=== PATIENT | female | born 1970 | race Caucasian/White ===

== ENCOUNTER 2020-05-28 20:00 | Observation (INO) | payer BC, SELFPAY ==
[2020-05-28 20:36] VITALS: BP 129/77; PULSE 98; RESP 19; TEMP 36.6; O2SAT 92; BMI 66.5
--- NOTE | 2020-05-28 21:01 | W.ED.GENADLT ---
HPI - General Adult General: Chief complaint: General Medical Stated complaint: some sort of rash on legs Time Seen by Provider: 05/28/20 20:52 History of Present Illness: HPI narrative: This patient is a 49-year-old female who presents today with pain and swelling in both of her lower legs. She said she started having a rash there in December and its just progressed to the point where she is having severe pain and weeping constantly. Both legs are red and painful. She says she has been keeping them clean at home with baby wipes and then applying tea tree oil and petroleum jelly. She does not have a regular doctor. She has not seen a doctor for these rash complaints. She is never been diagnosed with diabetes but says it runs in her family. She has morbid obesity. Onset (ago): month(s) (5) Location: lower extremity Severity: severe Severity scale (1-10): 10 Quality: burning Pain Consistency: constant Relieving factors: none Exacerbating factors: none Associated symptoms: Reports rash; Deny chest pain, dyspnea, fevers/chills, headache(s), malaise or nausea Review of Systems General: Reports: 10 or more systems reviewed and unremarkable except in HPI and below Const: Denies: malaise Eyes: Denies: change in vision ENMT: Denies: odynophagia Card: Reports: swelling of feet/ankles; Denies: chest pain Resp: Denies: dyspnea, productive cough or non-productive cough GI: Denies: nausea : Denies: flank pain or difficulty voiding Musc: Denies: neck pain or back pain Skin/Breast: Reports: rash, erythema, sores and non-healing lesions Neuro: Denies: headache(s), numbness in extremities or weakness in extremities Jeff/Lymph: Denies: easy bruising or easy bleeding PFSH ED PFSH: Medical History (Updated 05/29/20 @ 00:20 by Reed Alarcon MD) Morbid obesity Surgical History (Updated 05/29/20 @ 00:08 by Reed Alarcon MD) No pertinent past surgical history Family History (Updated 05/29/20 @ 00:08 by Reed Alarcon MD) Other CAD (coronary artery disease) Diabetes Social History (Updated 05/29/20 @ 00:08 by Reed Alarcon MD) Smoking and tobacco status: never smoked Alcohol intake: current Alcohol intake frequency: few times a month Substance/Drug Use: never Female Reproductive History: Date of last menstrual period: 05/26/20 Physical Exam Const: COMMON NORMALS: patient oriented x3, no limitations and alert GENERAL APPEARANCE: cooperative and in distress NUTRITIONAL APPEARANCE: obese morbidly obese HENMT: HEAD & SCALP: normal to inspection FACE & SINUS: normal facial exam Eye: GENERAL EYE: appearance normal, both eyes and all related structures Neck/C-Spine: COMMON NORMALS: supple, no meningeal signs and no JVD Chest: COMMONS NORMALS: normal inspection of the chest Resp: COMMON NORMALS: normal respiratory effort, No use of accessory muscles and clear to auscultation bilaterally AUSCULTATION: clear to auscultation bilaterally Cardio: COMMON NORMALS: no JVD, regular rate, regular rhythm and No murmurs present (Cardio) RATE: regular rate RHYTHM: regular rhythm GI: COMMON NORMALS: Normal to inspection, nondistended, normoactive bowel sounds present, Soft to palpation and non-tender INSPECTION: Yes normal to inspection AUSCULTATION: Yes normoactive bowel sounds PALPATION: Yes Soft to palpation Back/Pelvis: COMMON NORMALS: thoracic and lumbar spine normal to inspection Extremity: OTHER: Both lower extremities, from the knee down, are red, swollen, weeping and oozing purulent fluid. The feet are also red with swelling. Neuro: COMMON NORMALS: patient oriented x3, moves all extremities, no focal motor deficits and no sensory deficits noted SENSORIUM/ORIENTATION: Yes alert MENINGEAL SIGNS: Yes no meningeal signs Psych: COMMON NORMALS: mental status grossly normal, cooperative and normal affect Skin: COMMON NORMALS: no rashes or lesions noted and turgor normal GENERAL SKIN EXAM: no rashes or lesions noted and turgor normal Course ED course: This patient was having severe pain related to the infections in her leg. I considered the diagnosis of necrotizing fasciitis but she said she has been having this level of pain for several weeks. That seems unlikely that that could possibly be related to necrotizing fasciitis. On exam there is no crepitus or subcutaneous emphysema noted. Her labs show a white count which is slightly elevated but not tremendously high at 11. Lactate is still pending. Her inflammatory markers are quite high including a procalcitonin of 89. I have covered her with Zosyn and vancomycin. She will be admitted to the hospital. Vital Signs: Vital signs: Vital Signs Temperature 98.3 F 05/29/20 07:37 Pulse Rate 88 05/29/20 07:37 Respiratory Rate 18 05/29/20 08:41 Blood Pressure 111/68 05/29/20 07:37 Pulse Oximetry 99 05/29/20 07:37 MDM - General Adult Lab Data: Labs: Lab Results 05/28/20 05/28/20 05/28/20 Range/Units 02:17 02:17 21:24 WBC 10.1 H (4.0-10.0) 10^3/ uL RBC 4.40 (4.1-5.3) 10^6/u L Hgb 11.9 (11.5-15.3) g/dL Hct 37.3 (37.0-47.0) % MCV 84.8 (81-99) fL MCH 27.0 L (28.0-34.0) pg MCHC 31.9 (30.0-36.0) g/dL RDW 15.6 H (12.1-15.1) % Plt Count 276 (130-400) 10^3/c mm MPV 10.1 (7.4-10.4) fL Neut % (Auto) 74.9 % Lymph % (Auto) 16.0 % [place] % (Auto) 6.1 % Eos % (Auto) 1.9 % Baso % (Auto) 0.6 % Neut # (Auto) 7.56 (1.8-7.7) 10^3/u L Lymph # (Auto) 1.6 (0.8-4.8) 10^3/u L [place] # (Auto) 0.6 (0.2-0.9) 10^3/u L Eos # (Auto) 0.2 (0.0-0.8) 10^3/u L Baso # (Auto) 0.1 (0.0-0.1) 10^3/u L Nucleated RBC % (a uto) 0 % Nucleated RBCs # 0.0 /100WBC ESR (0-15) mm/hr Sodium (136-145) mmol/L Potassium (3.5-5.1) mmol/L Chloride (98-107) mmol/L Carbon Dioxide (22-29) mmol/L Anion Gap (5-19) BUN (6-20) mg/dL Creatinine (0.5-0.9) mg/dL GFR Calculation (90-130) mL/min Glucose (65-115) mg/dL Estimat Average Gl ucose 120 Hemoglobin A1c 5.8 (4.0-6.0) % Calculated Osmolal ity (285-295) mOsm/k g Lactic Acid (0.5-2.2) mmol/L Calcium (8.5-10.5) mg/dL Total Bilirubin (0.15-1.2) mg/dL AST (0-32) U/L ALT (0-33) U/L Alkaline Phosphata se (35-105) IU/L C-Reactive Protein (0.0-4.9) mg/L NT-Pro-B Natriuret Pep 87 (0-125) pg/mL Total Protein (6.6-8.7) g/dL Albumin (3.5-5.2) g/dL Globulin (1.3-4.6) g/dL Procalcitonin (0-0.5) ng/mL TSH 8.55 H (0.27-4.20) uIU/ mL 05/28/20 05/28/20 05/28/20 Range/Units 21:24 21:24 22:44 WBC (4.0-10.0) 10^3/ uL RBC (4.1-5.3) 10^6/u L Hgb (11.5-15.3) g/dL Hct (37.0-47.0) % MCV (81-99) fL MCH (28.0-34.0) pg MCHC (30.0-36.0) g/dL RDW (12.1-15.1) % Plt Count (130-400) 10^3/c mm MPV (7.4-10.4) fL Neut % (Auto) % Lymph % (Auto) % [place] % (Auto) % Eos % (Auto) % Baso % (Auto) % Neut # (Auto) (1.8-7.7) 10^3/u L Lymph # (Auto) (0.8-4.8) 10^3/u L [place] # (Auto) (0.2-0.9) 10^3/u L Eos # (Auto) (0.0-0.8) 10^3/u L Baso # (Auto) (0.0-0.1) 10^3/u L Nucleated RBC % (a uto) % Nucleated RBCs # /100WBC ESR 81 H (0-15) mm/hr Sodium 140 (136-145) mmol/L Potassium 3.1 L (3.5-5.1) mmol/L Chloride 105 (98-107) mmol/L Carbon Dioxide 23 (22-29) mmol/L Anion Gap 15.1 (5-19) BUN 19 (6-20) mg/dL Creatinine 1.0 H (0.5-0.9) mg/dL GFR Calculation 58.7 L (90-130) mL/min Glucose 137 H (65-115) mg/dL Estimat Average Gl ucose Hemoglobin A1c (4.0-6.0) % Calculated Osmolal ity 294 (285-295) mOsm/k g Lactic Acid 1.0 (0.5-2.2) mmol/L Calcium 8.6 (8.5-10.5) mg/dL Total Bilirubin 0.4 (0.15-1.2) mg/dL AST 118 H (0-32) U/L ALT 83 H (0-33) U/L Alkaline Phosphata se 94 (35-105) IU/L C-Reactive Protein 104.3 H (0.0-4.9) mg/L NT-Pro-B Natriuret Pep (0-125) pg/mL Total Protein 7.4 (6.6-8.7) g/dL Albumin 3.4 L (3.5-5.2) g/dL Globulin 4.0 (1.3-4.6) g/dL Procalcitonin 89.79 H (0-0.5) ng/mL TSH (0.27-4.20) uIU/ mL Discharge Plan Discharge Patient Disposition: Admitted As Inpatient Admit Provider: Reed Alarcon Clinical Impression: Cellulitis and abscess of right leg, Cellulitis and abscess of left leg, Morbid obesity Condition: Stable Referrals: Myranda Quiroz MD [Primary Care Provider] - Discharge Date/Time: 05/29/20 01:00 Coding Level of Care Code 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
[2020-05-28 21:16] VITALS: BP 138/82; PULSE 100; RESP 24; O2SAT 98
[2020-05-28 21:31] VITALS: RESP 20
[2020-05-28] MEDS: ondansetron 2 mg/ML SDV 2 mL 4 MG IVP (21:31)
[2020-05-28] MEDS: HYDROmorphone 1 mg/mL INJ 1 mL 0.5 MG IVP (21:31)
[2020-05-28 21:37] LABS: Basophils # 0.1 10^3/uL (0.0-0.1); Basophils % 0.6 %; Eosinophils # 0.2 10^3/uL (0.0-0.8); Eosinophils % 1.9 %; Hematocrit 37.3 % (37.0-47.0); Hemoglobin 11.9 g/dL (11.5-15.3); Lymphocytes # 1.6 10^3/uL (0.8-4.8); Mean Corpuscular HGB Conc 31.9 g/dL (30.0-36.0); Mean Corpuscular Volume 84.8 fL (81-99); Mean Platelet Volume 10.1 fL (7.4-10.4); Monocytes # 0.6 10^3/uL (0.2-0.9); Monocytes % 6.1 %; Neutrophils # 7.56 10^3/uL (1.8-7.7); Neutrophils % 74.9 %; Nucleated Red Blood Cells % 0 %; Platelet Count 276 10^3/cmm (130-400); Red Cell Distribution Width 15.6 % (12.1-15.1); White Blood Count 10.1 10^3/uL (4.0-10.0)
[2020-05-28 22:00] VITALS: BP 132/74; RESP 20; O2SAT 97
[2020-05-28 22:16] LABS: Procalcitonin 89.79 ng/mL (0-0.5)
[2020-05-28 22:27] LABS: Alanine Aminotransferase 83 U/L (0-33); Albumin Level 3.4 g/dL (3.5-5.2); Alkaline Phosphatase 94 IU/L (35-105); Blood Urea Nitrogen 19 mg/dL (6-20); C Reactive Protein 104.3 mg/L (0.0-4.9); Calcium 8.6 mg/dL (8.5-10.5); Carbon Dioxide 23 mmol/L (22-29); Chloride 105 mmol/L (98-107); Glomerular Filtration Rate 58.7 mL/min (90-130); Glucose 137 mg/dL (65-115); Osmolality Calculated 294 mOsm/kg (285-295); Sodium 140 mmol/L (136-145); Total Bilirubin 0.4 mg/dL (0.15-1.2); Total Protein 7.4 g/dL (6.6-8.7)
[2020-05-28 22:29] LABS: Anion Gap 15.1 (5-19); Aspartate Amino Transferase 118 U/L (0-32); Potassium 3.1 mmol/L (3.5-5.1)
[2020-05-28 22:37] LABS: Erythrocyte Sedimentation Rate 81 mm/hr (0-15)
[2020-05-28 22:40] VITALS: RESP 20
[2020-05-28] MEDS: HYDROmorphone 1 mg/mL INJ 1 mL IVP (22:40)
[2020-05-28] MEDS: piperacillin-tazobactam 4.5 GM in sodium chloride 0.9% (plus) 50 ML IV (22:41)
[2020-05-28 23:00] VITALS: BP 128/66; PULSE 74; RESP 18; O2SAT 97
--- NOTE | 2020-05-28 23:59 | CTR_ITS ---
PROCEDURE INFORMATION: Exam: CT Left Lower Extremity Without Contrast; Lower Leg Exam date and time: 05/28/2020 12:01 AM Age: 49 years old Clinical indication: Lower leg; Left; Patient HX: C/O ble cellulitis w weeping and pain TECHNIQUE: Imaging protocol: CT of the Left lower extremity without contrast was performed. Exam focused on the lower leg. Radiation optimization: All CT scans at this facility use at least one of these dose optimization techniques: automated exposure control; mA and/or kV adjustment per patient size (includes targeted exams where dose is matched to clinical indication); or iterative reconstruction. COMPARISON: No relevant prior studies available. RADIATION DOSE METRICS: Total DLP (mGy-cm): 1465.4 FINDINGS: Bones/joints: Severe tricompartmental osteoarthritis of the knee. Soft tissues: Diffuse subcutaneous edema throughout the lower extremity without focal fluid collection suggestive of cellulitis, negative for abscess or acute bony abnormality. CT/CT lower leg LT wo con* [id number] IMPRESSION: 1. Diffuse subcutaneous edema throughout the lower extremity without focal fluid collection suggestive of cellulitis, negative for abscess or acute bony abnormality. 2. Severe tricompartmental osteoarthritis of the knee. Radiation Dose CTDIVOL = (mGy): DLP = 1465.4 (mGy-cm)
--- NOTE | 2020-05-28 23:59 | CTR_ITS ---
PROCEDURE INFORMATION: Exam: CT Right Lower Extremity Without Contrast; Lower Leg Exam date and time: 05/28/2020 12:01 AM Age: 49 years old Clinical indication: Lower leg; Right; Patient HX: C/O ble cellulitis w weeping and pain TECHNIQUE: Imaging protocol: CT of the Right lower extremity without contrast was performed. Exam focused on the lower leg. Radiation optimization: All CT scans at this facility use at least one of these dose optimization techniques: automated exposure control; mA and/or kV adjustment per patient size (includes targeted exams where dose is matched to clinical indication); or iterative reconstruction. COMPARISON: No relevant prior studies available. RADIATION DOSE METRICS: Total DLP (mGy-cm): 1184.68 FINDINGS: Bones/joints: Severe tricompartmental osteoarthritis of the knee. Soft tissues: Diffuse subcutaneous edema throughout the lower extremity without focal fluid collection or acute bony abnormality likely reflects a cellulitis. CT/CT lower leg RT wo con* [id number] IMPRESSION: 1. Diffuse subcutaneous edema throughout the lower extremity without focal fluid collection or acute bony abnormality likely reflects a cellulitis. 2. Severe tricompartmental osteoarthritis of the knee. Radiation Dose CTDIVOL = (mGy): DLP = 1184.68 (mGy-cm)
[2020-05-29] VITALS (11 sets, daily range): BP systolic 103–134; BP diastolic 60–77; PULSE 67–101; RESP 14–22; TEMP 36.5–36.8; O2SAT 94–100
--- NOTE | 2020-05-29 00:05 | PM.HP ---
Providers/Chief Complaint Admitting Physician: Reed Alarcon MD Primary Care Provider: Myranda Quiroz MD Chief Complaint: some sort of rash on legs History of Present Illness Mag Saucedo is a 49 year old female with no significant past medical history, for [place], lives by herself, who presents to [facility] for 2-month history of bilateral lower extremity swelling, erythema, tenderness, discharge, foul smell. Patient tells me that for the last 2 months, she has had increased swelling of her bilateral lower extremities, increased erythema, tenderness, discharge, foul smell. Denies history of diabetes, denies a history of peripheral arterial disease, denies a hyperlipidemia, but has not seen a physician in many years. Patient denies any significant trauma. She does state that on the right leg she did have a bug bite a month ago. She does have pain in the bilateral lower extremities, no fevers, chills, nausea, no vomiting, no lightheadedness, dizziness. Denies a cardiac history. Denies history of COPD. Denies history of strokes. Review of Systems Const: Denies: fever(s), chills, fatigue or malaise Eyes: Denies: change in vision or blurry vision ENMT: Denies: nasal congestion Resp: Denies: dyspnea, productive cough, non-productive cough or wheezing GI: Denies: abdominal pain, nausea, vomiting, hematemesis, diarrhea, constipation, hematochezia or melena : Denies: flank pain, dysuria or urinary frequency Musc: Denies: neck pain or back pain Skin/Breast: Denies: rash Neuro: Denies: headache(s), dizziness or vertigo Psych: Denies: anxiety or depression Endo: Denies: polyuria or polydipsia Medications/Allergies Home Medications Medication Instructions Recorded Confirmed Last Taken Type No Known Home Medications 05/29/20 05/29/20 Unknown History Allergies Allergy/AdvReac Type Severity Reaction Status Date / Time No Known Allergies Allergy Verified 05/28/20 20:46 Additional Medication Information Does not take any medications at home PFSH Acute PFSH: Medical History (Updated 05/29/20 @ 00:20 by Reed Alarcon MD) Morbid obesity Surgical History (Updated 05/29/20 @ 00:08 by Reed Alarcon MD) No pertinent past surgical history Family History (Updated 05/29/20 @ 00:08 by Reed Alarcon MD) Other CAD (coronary artery disease) Diabetes Social History (Updated 05/29/20 @ 00:08 by Reed Alarcon MD) Smoking and tobacco status: never smoked Alcohol intake: current Alcohol intake frequency: few times a month Substance/Drug Use: never Female Reproductive History: Date of last menstrual period: 05/26/20 Vitals/I&O/Wt Last Vital Signs Temp 97.9 F 05/28/20 20:36 Pulse 100 05/28/20 21:16 Resp 20 H 05/28/20 22:40 BP 138/82 05/28/20 21:16 Pulse Ox 98 05/28/20 21:16 Weight last 48 hrs Weight 181.437 kg Physical Exam Const: COMMON NORMALS: no acute distress and patient oriented x3 GENERAL APPEARANCE: cooperative and comfortable HENMT: COMMON NORMALS: normocephalic HEAD & SCALP: normocephalic Eye: COMMON NORMALS: Equal, round and reactive pupils present and EOMs intact bilaterally GENERAL EYE: appearance normal, both eyes and all related structures PUPIL: Yes Equal, round and reactive pupils present Neck/C-Spine: COMMON NORMALS: full ROM, no lymphadenopathy, no JVD and Thyroid normal THYROID: Thyroid normal Lymph: LYMPHATIC: no lymphadenopathy noted Resp: COMMON NORMALS: normal respiratory effort, No retractions, No use of accessory muscles and clear to auscultation bilaterally AUSCULTATION: clear to auscultation bilaterally Cardio: COMMON NORMALS: no JVD, regular rate, regular rhythm, S1 normal heart sound present, S2 normal heart sound present, No gallops present (Cardio), No clicks present (Cardio) and No murmurs present (Cardio) RATE: regular rate RHYTHM: regular rhythm HEART SOUNDS: S1 normal heart sound present and S2 normal heart sound present GI: COMMON NORMALS: Normal to inspection, nondistended, normoactive bowel sounds present, Soft to palpation, non-tender and No hepatosplenomegaly present PALPATION: Yes Soft to palpation and Yes No hepatosplenomegaly present Extremity: COMMON NORMALS: normal to inspection, full ROM and no pedal edema Neuro: COMMON NORMALS: patient oriented x3, CN's II-XII intact bilaterally, moves all extremities and no focal motor deficits Psych: COMMON NORMALS: mental status grossly normal, Normal thought process present and cooperative THOUGHT PROCESS: Normal thought process present Skin: NARRATIVE SKIN EXAM: Bilateral lower extremity swelling, erythema, tenderness, open sores, purulent discharge, foul smell Data : 05/28/20 21:24 05/28/20 21:24 Micro: Microbiology 05/28/20 21:27 Blood Culture - Preliminary Blood SPECIMEN COLLECTED 05/28/20 21:24 Blood Culture - Preliminary Blood SPECIMEN COLLECTED A&P Assessment and plan (1) Cellulitis and abscess of right leg: -Concerns for underlying cellulitis and osteomyelitis bilateral extremities -Possible abscess -White blood cell count 10.1, pro-Ejsus 89.79, creatinine 1.0, CRP 104.3, ESR 81 Plan: -Admit to general medical floors -Full code -Lovenox for DVT prophylaxis -Broad-spectrum antibiotics vancomycin and Zosyn -Follow blood cultures, tissue cultures, MRSA nares -Ordered bilateral lower extremity CT to evaluate for underlying osteomyelitis, abscess -Continue gentle IV hydration -ABIs to evaluate for peripheral arterial disease -Cardiac echocardiogram ordered given edema -Held off on giving Lasix, for bilateral lower extremity edema, diuresis based on clinical progress - Status: Acute (2) Cellulitis and abscess of left leg: Status: Acute (3) Transaminitis: Status: Acute (4) Morbid obesity: Status: Acute (5) BILLY (acute kidney injury): Status: Acute (6) Hypokalemia: Status: Acute Attestations Medical Necessity Statement*: Patient requires hospitalization, inpatient, greater than 2 midnights, for bilateral lower extremity cellulitis, possible osteomyelitis possible abscess Coding Level of Care Code 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
[2020-05-29] MEDS: lidocaine 1% INJ 20 mL 5 ML IV (01:39)
[2020-05-29] MEDS: sodium chloride 0.9% 1,000 ML 50 ML IV ×2 (01:39→21:45)
[2020-05-29] MEDS: potassium chloride premix 100 ML 25 MEQ IV (01:39)
[2020-05-29] MEDS: enoxaparin 40 mg/0.4 mL Syringe SUBCUT (01:48)
[2020-05-29 03:07] LABS: Basophils # 0.1 10^3/uL (0.0-0.1); Basophils % 0.7 %; Eosinophils # 0.1 10^3/uL (0.0-0.8); Eosinophils % 1.2 %; Hematocrit 35.7 % (37.0-47.0); Hemoglobin 11.2 g/dL (11.5-15.3); Lymphocytes # 1.1 10^3/uL (0.8-4.8); Lymphocytes % 10.2 %; Mean Corpuscular HGB Conc 31.4 g/dL (30.0-36.0); Mean Corpuscular Hemoglobin 27.2 pg (28.0-34.0); Mean Corpuscular Volume 86.7 fL (81-99); Mean Platelet Volume 9.1 fL (7.4-10.4); Monocytes # 0.5 10^3/uL (0.2-0.9); Monocytes % 4.4 %; Neutrophils # 9.12 10^3/uL (1.8-7.7); Nucleated Red Blood Cells % 0 %; Platelet Count 334 10^3/cmm (130-400); Red Blood Count 4.12 10^6/uL (4.1-5.3); Red Cell Distribution Width 15.8 % (12.1-15.1)
[2020-05-29 03:21] LABS: INR 1.13 (0.8-1.2)
[2020-05-29] MEDS: morphine 4 mg/mL SDV 1 mL 2 MG IVP ×3 (03:26→21:38)
[2020-05-29 03:36] LABS: Alanine Aminotransferase 99 U/L (0-33); Albumin Level 3.2 g/dL (3.5-5.2); Alkaline Phosphatase 89 IU/L (35-105); Anion Gap 15.3 (5-19); Aspartate Amino Transferase 138 U/L (0-32); Blood Urea Nitrogen 17 mg/dL (6-20); Calcium 8.4 mg/dL (8.5-10.5); Carbon Dioxide 23 mmol/L (22-29); Chloride 105 mmol/L (98-107); Glomerular Filtration Rate 58.7 mL/min (90-130); Glucose 122 mg/dL (65-115); Magnesium 2.1 mg/dL (1.7-2.3); Osmolality Calculated 295 mOsm/kg (285-295); Phosphorus 4.4 mg/dL (2.5-4.5); Sodium 141 mmol/L (136-145); Total Bilirubin 0.5 mg/dL (0.15-1.2); Total Protein 6.2 g/dL (6.6-8.7)
[2020-05-29 03:42] LABS: NT Pro B Type Natriuretic Pept 87 pg/mL (0-125); Thyroid Stimulating Hormone 8.55 uIU/mL (0.27-4.20)
[2020-05-29 03:44] LABS: Procalcitonin 94.22 ng/mL (0-0.5)
[2020-05-29 03:44] LABS: Estmated Average Glucose 120; Hemoglobin A1C 5.8 % (4.0-6.0)
[2020-05-29 03:49] LABS: Potassium 2.3 mmol/L (3.5-5.1)
[2020-05-29 04:07] LABS: Chol HDL Ratio 3.53 mg/dL (0.0-4.40); Cholesterol 106 mg/dL (0-200); HDL Cholesterol 30 mg/dL (60-100); LDL Cholesterol Calculated 55 mg/dL (50-129); LDL HDL Ratio 1.83 RATIO (0.00-3.22); Triglycerides 107 mg/dL (0-150)
[2020-05-29] MEDS: piperacillin-tazobactam 3.375 GM in sodium chloride 0.9% (plus) 50 ML IV ×3 (06:15→23:06)
[2020-05-29 06:26] LABS: Urine Color Yellow (Yellow); pH Urine 5 (5-7)
[2020-05-29 06:27] LABS: Add Urine Microscopic? YES; Amorphous Sediment Urine 2+ /hpf; Bacteria Urine TRACE /hpf; Bilirubin Urine Neg (Negative); Blood Urine Neg (Negative); Glucose Urine UA Norm (Normal); Ketones Urine Negative (Negative); Leukocyte Esterase Urine Negative (Negative); Nitrate Urine Negative (Negative); Protein Urine Trace (Negative); Squamous Epithelial Cell Urine 0-4 /hpf (0-5); Urobilinogen Urine Norm (Negative); WBC Urine 0-4 /hpf (0-5)
--- NOTE | 2020-05-29 06:52 | USR_ITS ---
PROCEDURE INFORMATION: Exam: US Duplex Lower Extremity Veins, Bilateral Exam date and time: 05/29/2020 6:53 AM Age: 49 years old Clinical indication: Swelling (edema) of limb; Lower extremity, bilateral; Additional info: R/O dvt TECHNIQUE: Imaging protocol: Real-time duplex ultrasound of the extremities with 2-D cook scale, color Doppler flow and spectral waveform analysis with image documentation. Complete exam focused on the bilateral lower extremity veins. COMPARISON: No relevant prior studies available. FINDINGS: Right deep veins: Unremarkable. The common femoral, femoral, proximal profunda femoral and popliteal veins are patent without thrombus. Normal Doppler waveforms. Normal compressibility and/or augmentation response. Right superficial veins: Saphenofemoral junction is patent without thrombus. Left deep veins: Unremarkable. The common femoral, femoral, proximal profunda femoral and popliteal veins are patent without thrombus. Normal Doppler waveforms. Normal compressibility and/or augmentation response. Left superficial veins: Saphenofemoral junction is patent without thrombus. Soft tissues: No Deleon's cyst. There is a left groin lymph node. US/CV venous duplex [facility] [id number] IMPRESSION: No evidence of deep vein thrombosis.
--- NOTE | 2020-05-29 06:54 | USR_ITS ---
PROCEDURE INFORMATION: Exam: US Duplex Lower Extremity Arteries Or Arterial Bypass Grafts Exam date and time: 05/29/2020 2:16 PM Age: 49 years old Clinical indication: Pain; Leg, lower; Bilateral; Additional info: B/l le cellulitis TECHNIQUE: Imaging protocol: Real-time ultrasound scan of the arteries of the bilateral lower extremities with 2-D cook scale, color Doppler flow and spectral waveform analysis. Images documented and saved. COMPARISON: CT lower leg RT wo con* [id number] 05/29/2020 12:21 AM FINDINGS: Peak systolic velocities on the RIGHT are as follows: Iliac artery 183 cm/s monophasic Common femoral artery 149 cm/s monophasic Proximal superficial femoral artery 151 cm/s monophasic Mid superficial femoral artery 165 cm/s monophasic Distal superficial femoral artery 159 cm/s monophasic Popliteal artery 95 cm/s monophasic Peak systolic velocities on the LEFT are as follows: Iliac artery 133 cm/s monophasic Common femoral artery 159 cm/s monophasic Proximal superficial femoral artery 143 cm/s monophasic Mid superficial femoral artery 215 cm/s monophasic Distal superficial femoral artery 161 cm/s monophasic Popliteal artery 128 cm/s monophasic The posterior tibial and dorsalis pedis arteries are not evaluated due to open wounds. No arterial occlusion. US/[place] [id number] Impression No arterial occlusion. There is peripheral vascular disease. There is stenosis of the mid left superficial femoral artery.
[2020-05-29] MEDS: nystatin powder 15 gm Btl 1 APPLIC TOPICAL ×2 (08:48→18:09)
--- NOTE | 2020-05-29 09:27 | P.CONIM_ITS ---
Providers/Reason For Consult Consulting Physican/Specialty*: Dr. Ball Reason for Consult*: Bilateral lower extremity cellulitis Attending Physician: Ray Jack Primary Care Provider: Myranda Quiroz MD History of Present Illness History of Present Illness Mag Saucedo is a 49 year old female who usually does not see a primary care physician and is currently not on any medications, nor has had any previous surgeries, presented to the ER yesterday with 2-month history of worsening pain redness and swelling in bilateral lower extremities. Patient denies any fevers or chills, as far as she knows she is not a diabetic. She had a CT of her lower extremity which was negative for abscess or necrotizing fasciitis. Venous study was negative for any DVT. Review of Systems General: Reports: 10 or more systems reviewed and unremarkable except in HPI and below Meds/Allergies Home Medications and Allergies Home Medications Medication Instructions Recorded Confirmed Last Taken Type No Known Home Medications 05/29/20 05/29/20 Unknown History Allergies Allergy/AdvReac Type Severity Reaction Status Date / Time No Known Allergies Allergy Verified 05/28/20 20:46 Current Medications Current Medications Generic Name Dose Route Start Last Admin Trade Name Freq PRN Reason Stop Dose Admin Enoxaparin Sodium 40 mg 05/29/20 02:00 05/29/20 01:48 Lovenox SUBCUT 40 mg Q24H ABRAHAM Administration Sodium Chloride 1,000 mls @ 50 mls/hr 05/29/20 01:23 05/29/20 03:40 Sodium Chloride 0.9% IV 0 mls/hr .Q20H ABRAHAM Infusion Piperacillin Sod/Tazobactam 50 mls @ 12.5 mls/hr 05/29/20 07:00 05/29/20 06:15 Sod 3.375 gm/ Sodium Chloride IV 12.5 mls/hr Q8H ABRAHAM Administration Protocol As Directed Morphine Sulfate 2 mg 05/29/20 01:23 05/29/20 08:41 Morphine IVP 2 mg Q4H PRN Administration SEVERE PAIN Nystatin 1 applic 05/29/20 09:00 05/29/20 08:48 Nystatin Powder TOPICAL 1 applic BID ABRAHAM Administration PFSH Acute PFSH: Medical History Morbid obesity Surgical History No pertinent past surgical history Family History Other CAD (coronary artery disease) Diabetes Social History Smoking and tobacco status: never smoked Alcohol intake: current Alcohol intake frequency: few times a month Substance/Drug Use: never Female Reproductive History: Date of last menstrual period: 05/26/20 Vitals/I&O/Wt Last Vital Signs Temp 98.3 F 05/29/20 07:37 Pulse 88 05/29/20 07:37 Resp 18 05/29/20 08:41 BP 111/68 05/29/20 07:37 Pulse Ox 99 05/29/20 07:37 05/28/20 05/29/20 05/29/20 22:59 06:59 14:59 Intake Total 151.250 / 151.250 Output Total 400 / 400 Balance -248.750 / -248.750 Weight last 48 hrs Weight 386 lb 11.2 oz Weight 400 lb Physical Exam Narrative: EXAM NARRATIVE: HEENT: Normocephalic Eye: Sclera /conjunctiva normal Abdomen: Soft to palpation Neurological: Oriented to place person and time Skin: Intact, bilateral pedal edema with skin excoriation, serous drainage and multiple small wounds, tender to palpation, associated erythema Data Micro: Micro: Microbiology 05/29/20 01:00 Gram Stain - Final Leg - #2 05/29/20 01:00 Gram Stain - Final Leg - #1 05/28/20 21:27 Blood Culture - Pr eliminary Blood SPECIMEN [facility] 05/28/20 21:24 Blood Culture - Pr eliminary Blood SPECIMEN [facility] A&P Assessment and plan (1) Cellulitis and abscess of right le-year-old female with bilateral lower extremity cellulitis, morbidly obese with a BMI of 64 which is exquisitely tender to palpation. At this point there is no indication for surgical debridement. Patient is currently on empiric vancomycin and Zosyn Apply daily application of zinc paste ABDs and Kerlix gauze Patient will need a venous reflux study as well as arterial duplex. Status: Resolved (2) Cellulitis of both lower extremities: Status: Acute Coding Level of Care Code Acute Associate [employer] for [employer] Fwd Diagnoses Cellulitis and abscess of right leg L03.115; L02.415 Cellulitis of both lower extremities L03.115; L03.116
[2020-05-29] MEDS: lidocaine 1% 5 ML in potassium chloride premix 100 ML 25 ML IV (09:58)
[2020-05-29 12:38] LABS: Anion Gap 11.7 (5-19); Blood Urea Nitrogen 18 mg/dL (6-20); Calcium 7.9 mg/dL (8.5-10.5); Carbon Dioxide 26 mmol/L (22-29); Chloride 110 mmol/L (98-107); Glomerular Filtration Rate 66.3 mL/min (90-130); Glucose 127 mg/dL (65-115); Osmolality Calculated 303 mOsm/kg (285-295); Sodium 145 mmol/L (136-145)
[2020-05-29 12:43] LABS: Potassium 2.7 mmol/L (3.5-5.1)
--- NOTE | 2020-05-29 16:25 | P.PN_ITS ---
Subjective Subjective: Interval history: She says she is doing okay, but is hungry and asking for something to eat and drink. Vitals/I&O/Wt Last Vital Signs Temp 97.7 F 05/29/20 16:00 Pulse 85 05/29/20 16:00 Resp 18 05/29/20 16:00 BP 107/60 05/29/20 16:00 Pulse Ox 95 05/29/20 16:00 05/29/20 05/29/20 05/29/20 06:59 14:59 22:59 Intake Total 151.250 / 151.250 50 / 50 Output Total 400 / 400 250 / 250 Balance -248.750 / -248.750 -200 / -200 Weight last 48 hrs Weight 175.404 kg Weight 181.437 kg Physical Exam Const: COMMON NORMALS: no acute distress and patient oriented x3 NUTRITIONAL APPEARANCE: obese morbidly obese HENMT: COMMON NORMALS: oropharynx normal Neck/C-Spine: COMMON NORMALS: no JVD Resp: COMMON NORMALS: normal respiratory effort and clear to auscultation bilaterally AUSCULTATION: clear to auscultation bilaterally Cardio: COMMON NORMALS: no JVD, regular rhythm, S1 normal heart sound present, S2 normal heart sound present and No murmurs present (Cardio) RHYTHM: regular rhythm HEART SOUNDS: S1 normal heart sound present and S2 normal heart sound present GI: COMMON NORMALS: Normal to inspection, nondistended, normoactive bowel sounds present, Soft to palpation and non-tender PALPATION: Yes Soft to palpation Extremity: OTHER: Bilateral lower extremity edema., Circumferential erythema and shallow ulcers. Neuro: COMMON NORMALS: patient oriented x3 and moves all extremities Skin: LESIONS: lesion noted (Bilateral lower extremity sacral pressure ulcer erythema and shallow ulcerations, irregularly shaped, mostly focused above the ankle, but extending proximally to about mid leg and irregular patterns.) Data : 05/29/20 02:17 05/29/20 12:05 Micro: Microbiology 05/29/20 01:00 MRSA Culture - Final Nose 05/29/20 01:00 Gram Stain - Final Leg - #2 05/29/20 01:00 Gram Stain - Final Leg - #1 05/28/20 21:27 Blood Culture - Preliminary Blood SPECIMEN COLLECTED 05/28/20 21:24 Blood Culture - Preliminary Blood SPECIMEN COLLECTED A&P Assessment and plan (1) Cellulitis and abscess of right leg: Infection of lower extremity wounds. Appearance of chronic venous stasis ulcers. Complicated by cellulitis bilaterally. Moderate amount of sloughing, but shallow, does not appear to have deep necrosis. No abscess noted on CT. Continue IV antibiotics. Will need venous reflux study. Appreciate surgery recommendations. In addition to antibiotics, zinc oxide added. Continue to monitor, additional reassessments for debridement depend on progress. Once wounds are somewhat better consider compression dressings. Venous duplex without DVT. Arterial no duplex without occlusion. Noted PAD. Stenosis noted in the mid left superficial femoral artery. LION cannot be performed as ankles could not be compressed. TBI performed to be read by cardiology. Echo with normal ejection fraction. Status: Resolved (2) Cellulitis and abscess of left leg: As above. Status: Resolved (3) Transaminitis: No abdominal pain. Monitor. Consider outpatient evaluation. Status: Acute (4) Morbid obesity: Follow-up with PCP regarding weight loss options. Status: Acute (5) BILLY (acute kidney injury): Resolved. Status: Acute (6) Hypokalemia: Replaced. Recheck. Status: Acute Attestations Medical Necessity Statement*: Continue admission for assessment of management of bilateral lower extremity wound infection, with ulcerations, cellulitis. Coding Level of Care Code Acute Motor Vehicle Inspector for [facility] Diagnoses Cellulitis and abscess of right leg L03.115; L02.415 Cellulitis and abscess of left leg L03.116; L02.416 Transaminitis R74.01 Morbid obesity E66.01 BILLY (acute kidney injury) N17.9 Hypokalemia E87.6
--- NOTE | 2020-05-29 17:50 | PC.PT ---
PT note; patient receiving extensive ultrasound testing this afternoon, will await results of same, prior to intervention.
--- NOTE | 2020-05-29 23:59 | USCV_ITS ---
SaucedoMag pavon Age: 49 Gender: F : 1970 Exam Date: 05/29/2020 13:46 Ordering Phys: Reed Alarcon MD Technologist: Olga Farias [place] [facility] [place]: Bilateral lower extremity edema BP: 111 / 68 HR: 86 Rhythm: Sinus Technical Quality: Poor because of body habitus MEASUREMENTS (Male / Female) Normal Values 2D ECHO LV Diastolic Diameter PLAX 4.0 cm 4.2 - 5.9 / 3.9 - 5.3 cm LV Systolic Diameter PLAX 2.8 cm LV Chamber Size 4.2 cm IVS Diastolic Thickness 1.4 cm 0.6 - 1.0 / 0.6 - 0.9 cm IVS Systolic Thickness 1.6 cm LVPW Diastolic Thickness 1.3 cm 0.6 - 1.0 / 0.6 - 0.9 cm LVPW Systolic Thickness 1.1 cm RV Chamber Size 2.7 cm LVOT Diameter 2.1 cm LV Ejection Fraction 2D Teich 60.3 % LA Diameter 2.5 cm LA Width 2.8 cm LA Height 5.3 cm Aorta at Sinotubular Diameter 3.0 cm M-MODE LV Diastolic Diameter MM 5.3 cm 4.2 - 5.9 / 3.9 - 5.3 cm LV Systolic Diameter MM 2.9 cm LV Ejection Fraction MM Teich 75.4 % IVS Diastolic Thickness MM 1.0 cm 0.6 - 1.0 / 0.6 - 0.9 cm IVS Systolic Thickness MM 1.2 cm LVPW Diastolic Thickness MM 1.4 cm 0.6 - 1.0 / 0.6 - 0.9 cm LVPW Systolic Thickness MM 1.5 cm RV Diastolic Diameter MM 1.3 cm Aortic Annulus Diameter 3.2 cm LA Ao Ratio MM 1.0 DOPPLER AV Peak Velocity 131.0 cm/s LVOT Peak Velocity 87.0 cm/s AV Area Cont Eq vti 2.7 cm squared AV Area Cont Eq pk 2.3 cm squared MV Area PHT 2.9 cm squared Mitral E to A Ratio 0.9 MV E' Velocity 31.5 cm/s Mitral E to MV E' Ratio 6.4 Mitral E to LV E' Lateral Ratio 7.6 Mitral E to LV E' Septal Ratio 5.6 TV Peak E Velocity 75.0 cm/s Right Atrial Pressure 3.0 mmHg FINDINGS Left Ventricle Normal left ventricular cavity size. Probably left ventricular systolic function. Left ventricular ejection fraction is estimated at 55 %. This study is inadequate for estimation of regional wall motion abnormality. Normal diastolic function. Right Ventricle Possibly normal right ventricular size and systolic function. Right Atrium Right atrium not well visualized. Left Atrium Left atrium not well visualized. Possibly normal left atrial size. Mitral Valve Mildly thickened mitral valve. No significant mitral valve regurgitation. Aortic Valve Aortic valve not well visualized. No aortic valve stenosis. No aortic valve regurgitation. Tricuspid Valve Tricuspid valve not well visualized. Pulmonic Valve Pulmonic valve not well visualized. Pericardium Echo free space anterior to the right ventricle likely represents a fat pad. Aorta Aorta not well visualized. CONCLUSIONS 1. This is a technically difficult study. 2. Normal left ventricular cavity size. Probably left ventricular systolic function. Left ventricular ejection fraction is estimated at 55 %. This study is inadequate for estimation of regional wall motion abnormality. 3. No significant valvular abnormality. 4. Repeat study with ultrasound enhancing agent is recommended. Giselle Diaz MD (Electronically Signed) Final Date: 29 May 2020 19:52 S
[2020-05-30] VITALS (7 sets, daily range): BP systolic 110–134; BP diastolic 69–77; PULSE 78–98; RESP 18–24; TEMP 36.6–37.2; O2SAT 95–99
[2020-05-30] MEDS: diphenhydrAMINE 50 mg/mL SDV 1mL 25 MG IVP (00:02)
[2020-05-30] MEDS: enoxaparin 40 mg/0.4 mL Syringe SUBCUT (03:50)
[2020-05-30] MEDS: morphine 4 mg/mL SDV 1 mL 2 MG IVP (05:14)
[2020-05-30 06:06] LABS: Procalcitonin 71.66 ng/mL (0-0.5)
[2020-05-30] MEDS: piperacillin-tazobactam 3.375 GM in sodium chloride 0.9% (plus) 50 ML IV ×3 (06:08→23:59)
[2020-05-30] MEDS: nystatin powder 15 gm Btl 1 APPLIC TOPICAL ×2 (09:19→17:12)
--- NOTE | 2020-05-30 15:56 | USCV_ITS ---
Mag Saucedo Age: 49 Gender: F : 1970 Exam Date: 05/30/2020 14:10 Ordering Phys: Marin Elizabeth MD Technologist: Carlo Morgan Exam Location: [facility] [place] Indication: HISTORY: Patient has ulcers. PROCEDURES: Bilateral duplex Venous Insufficiency study of the Deep and Superficial systems was carried out according to normal protocol with the patient in supine positon for deep system and dependent position for the superficial system. FINDINGS: There is no evidence of bilateral deep vein thrombosis. No evidence of superficial thrombosis in the bilateral saphenous system. No evidence of reflux was noted in the bilateral deep venous system. No venous reflux noted in the bilateral greater saphenous vein. Small sapheonous system not evaluated could not be visulized due to edema The identifiable veins were found to be easily compressible with spontaneous flow. CONCLUSIONS No evidence of DVT in the above-mentioned identifiable veins. No significant venous reflux, either in the deep or superficial veins. The small saphenous veins were not visualized Dr Aria Kimbrough MD FACC (Electronically Signed) Final Date: 30 May 2020 16:54 S
--- NOTE | 2020-05-30 16:40 | PM.PN ---
Subjective Subjective: Interval history: no acute overnight events, lymphedema wraps ordered, venous reflux study ordered, results remain pending. Per patient erythema and pain appears to be improving today. Medications: Reviewed: Yes Medication Review Details: Does not take any medications at home Vitals/I&O/Wt Last Vital Signs Temp 98.6 F 05/30/20 16:00 Pulse 84 05/30/20 16:00 Resp 20 H 05/30/20 16:00 BP 123/69 05/30/20 16:00 Pulse Ox 99 05/30/20 16:00 05/30/20 05/30/20 05/30/20 06:59 14:59 22:59 Intake Total 50 / 510 650 / 650 Balance 50 / -340 650 / 650 Weight last 48 hrs Weight 175.404 kg Weight 181.437 kg Physical Exam Narrative: EXAM NARRATIVE: GEN: Awake, alert and oriented, no acute distress CVS: S1S2 N RS: CTA B/L Abd: Soft, nt/nd , bs+ PROFESSOR OF ECONOMICS: no focal neuro deficits Data : 05/29/20 02:17 05/29/20 12:05 Micro: Microbiology 05/29/20 01:00 Gram Stain - Final Leg - #2 Wound Culture - Preliminary Gram Negative Rods 05/29/20 01:00 Gram Stain - Final Leg - #1 Wound Culture - Preliminary Gram Negative Rods 05/28/20 21:27 Blood Culture - Preliminary Blood NEGATIVE TO DATE 05/28/20 21:24 Blood Culture - Preliminary Blood NEGATIVE TO DATE 05/29/20 01:00 MRSA Culture - Final Nose A&P Assessment and plan (1) Cellulitis and abscess of right leg: Infection of lower extremity wounds. Appearance of chronic venous stasis ulcers. Complicated by cellulitis bilaterally. Moderate amount of sloughing, but shallow, does not appear to have deep necrosis. No abscess noted on CT. Continue IV antibiotics. Venous reflux studies ordered, results pending. Appreciate surgery recommendations. In addition to antibiotics, zinc oxide added. Added compression stickings Patient has bilateral rash over her upper and lower extremities which appears to be an erythematous papule with some showing pustular changes as well. She says these are pre-existing since January. She attributes this to flea bites from her cats. She has given up her cats and says that these appear to be improving since then however still remain intensely itchy. I am concerned about possible scabies for which we will start ivermectin, 3 mg as a single dose and then repeat 1 week later. Her lower extremity wounds over cellulitic/lymphedema area do appear to be different in appearance compared to these other lesions all over her body sparing her face. Venous duplex without DVT. Arterial no duplex without occlusion. Noted PAD. Stenosis noted in the mid left superficial femoral artery. LION cannot be performed as ankles could not be compressed. Echo with normal ejection fraction. Status: Resolved (2) Cellulitis and abscess of left leg: As above. Status: Resolved (3) Transaminitis: No abdominal pain. Monitor. Consider outpatient evaluation. Status: Acute (4) Morbid obesity: Follow-up with PCP regarding weight loss options. Status: Acute (5) BILLY (acute kidney injury): Resolved. Status: Acute (6) Hypokalemia: Replaced. Recheck. Status: Acute Attestations Medical Necessity Statement*: Starting lymphedema wraps, improving cellulitis, ongoing need for IV antibiotics Coding Level of Care Code Acute Lamination Machine Operator for [facility] Diagnoses Cellulitis and abscess of right leg L03.115; L02.415 Cellulitis and abscess of left leg L03.116; L02.416 Transaminitis R74.01 Morbid obesity E66.01 BILLY (acute kidney injury) N17.9 Hypokalemia E87.6
[2020-05-30 18:56] LABS: Basophils # 0.1 10^3/uL (0.0-0.1); Basophils % 0.6 %; Eosinophils # 0.1 10^3/uL (0.0-0.8); Hematocrit 33.6 % (37.0-47.0); Hemoglobin 10.2 g/dL (11.5-15.3); Lymphocytes # 1.6 10^3/uL (0.8-4.8); Lymphocytes % 19.7 %; Mean Corpuscular HGB Conc 30.4 g/dL (30.0-36.0); Mean Corpuscular Hemoglobin 27.2 pg (28.0-34.0); Mean Corpuscular Volume 89.6 fL (81-99); Mean Platelet Volume 9.9 fL (7.4-10.4); Monocytes # 0.6 10^3/uL (0.2-0.9); Neutrophils # 5.66 10^3/uL (1.8-7.7); Neutrophils % 70.9 %; Nucleated Red Blood Cells % 0 %; Platelet Count 290 10^3/cmm (130-400); Red Blood Count 3.75 10^6/uL (4.1-5.3); Red Cell Distribution Width 16.4 % (12.1-15.1)
[2020-05-30 20:23] LABS: Blood Urea Nitrogen 16 mg/dL (6-20); Globulin 3.3 g/dL (1.3-4.6); Glucose 111 mg/dL (65-115); Magnesium 2.2 mg/dL (1.7-2.3); Phosphorus 2.6 mg/dL (2.5-4.5); Total Bilirubin 0.4 mg/dL (0.15-1.2)
[2020-05-30 20:58] LABS: Alanine Aminotransferase 484 U/L (0-33); Albumin Level 2.6 g/dL (3.5-5.2); Anion Gap 15.7 (5-19); Aspartate Amino Transferase 669 U/L (0-32); Calcium 7.7 mg/dL (8.5-10.5); Carbon Dioxide 21 mmol/L (22-29); Chloride 106 mmol/L (98-107); Osmolality Calculated 292 mOsm/kg (285-295); Potassium 2.7 mmol/L (3.5-5.1); Sodium 140 mmol/L (136-145); Total Protein 5.9 g/dL (6.6-8.7)
[2020-05-30 20:59] LABS: Alkaline Phosphatase 83 IU/L (35-105)
[2020-05-30] MEDS: potassium chloride premix 100 ML 25 MEQ IV (23:07)
[2020-05-30] MEDS: sodium chloride 0.9% 1,000 ML 50 ML IV (23:07)
[2020-05-31] VITALS (7 sets, daily range): BP systolic 103–128; BP diastolic 59–81; PULSE 75–96; RESP 18–20; TEMP 37.1–37.4; O2SAT 94–98
[2020-05-31] MEDS: enoxaparin 40 mg/0.4 mL Syringe SUBCUT (02:38)
[2020-05-31 03:54] LABS: Basophils % 0.6 %; Eosinophils # 0.2 10^3/uL (0.0-0.8); Hematocrit 30.7 % (37.0-47.0); Hemoglobin 9.6 g/dL (11.5-15.3); Lymphocytes # 2.3 10^3/uL (0.8-4.8); Lymphocytes % 35.7 %; Mean Corpuscular HGB Conc 31.3 g/dL (30.0-36.0); Mean Corpuscular Hemoglobin 27.3 pg (28.0-34.0); Mean Corpuscular Volume 87.2 fL (81-99); Mean Platelet Volume 9.3 fL (7.4-10.4); Monocytes # 0.6 10^3/uL (0.2-0.9); Monocytes % 9.4 %; Neutrophils % 49.9 %; Nucleated Red Blood Cells % 0.3 %; Platelet Count 283 10^3/cmm (130-400); Red Blood Count 3.52 10^6/uL (4.1-5.3); Red Cell Distribution Width 16.1 % (12.1-15.1); White Blood Count 6.4 10^3/uL (4.0-10.0)
[2020-05-31 04:16] LABS: Vancomycin Trough 20.2 ug/mL (10-15)
[2020-05-31 04:23] LABS: Alanine Aminotransferase 326 U/L (0-33); Albumin Level 2.3 g/dL (3.5-5.2); Alkaline Phosphatase 74 IU/L (35-105); Anion Gap 8.5 (5-19); Aspartate Amino Transferase 242 U/L (0-32); Blood Urea Nitrogen 10 mg/dL (6-20); Calcium 7.3 mg/dL (8.5-10.5); Carbon Dioxide 27 mmol/L (22-29); Chloride 108 mmol/L (98-107); Globulin 3.2 g/dL (1.3-4.6); Glomerular Filtration Rate 75.9 mL/min (90-130); Glucose 128 mg/dL (65-115); Magnesium 2.3 mg/dL (1.7-2.3); Osmolality Calculated 293 mOsm/kg (285-295); Phosphorus 1.5 mg/dL (2.5-4.5); Sodium 141 mmol/L (136-145); Total Bilirubin 0.4 mg/dL (0.15-1.2); Total Protein 5.5 g/dL (6.6-8.7)
--- NOTE | 2020-05-31 04:50 | PC.PHAR ---
Vancomycin trough level at 1500mg IVPB ever 8 hours is 20.2. Hold this dose and resume at 1500mg IVPB every 12 hours with another trough to be obtained before the fourth dose at this rate.
[2020-05-31] MEDS: piperacillin-tazobactam 3.375 GM in sodium chloride 0.9% (plus) 50 ML IV (06:06)
--- NOTE | 2020-05-31 06:34 | US_ITS ---
WS: [id number] RIGHT UPPER QUADRANT ULTRASOUND HISTORY: increasing transaminitis COMPARISON: None available. Liver: 16.3 cm in length. Mildly enlarged liver with coarsened echotexture. No mass identified. The e ntire liver is not well visualized. Gallbladder: Large amount shadowing from stones in the region of the gallbladder fossa. Gallbladder w all is thickened measuring up to 5 mm. No pericholecystic fluid. CBD: 0.7 cm Pancreas: Not visualized. Right kidney: 12.3 cm in length. Normal size and echogenicity. No hydronephrosis or mass. Aorta and IVC: Unremarkable abdominal aorta and IVC. No ascites. US/US liver [id number] IMPRESSION: 1. Cholelithiasis. Gallbladder is difficult to evaluate as there are numerous stones in the gallbladder with very little normal gallbladder distention. The w all is also thickened. 2. Common bile duct is top normal size at 7 mm. 3. Hepatic steatosis and mild hepatomegaly.
[2020-05-31 06:54] LABS: Potassium 2.5 mmol/L (3.5-5.1)
[2020-05-31 07:22] LABS: Hepatitis A Antibody IgM Non-Reactive (Nonreactive); Hepatitis B Core AB, Total Non-Reactive (Nonreactive); Hepatitis B Surface AB 3.5 (0-8.5); Hepatitis B Surface Antigen Non-Reactive (Nonreactive); Hepatitis C Virus Antibody Non-Reactive (Nonreactive)
[2020-05-31] MEDS: lidocaine 1% 5 ML in potassium chloride premix 100 ML 25 ML IV ×2 (08:59→13:09)
[2020-05-31] MEDS: nystatin powder 15 gm Btl 1 APPLIC TOPICAL (09:11)
[2020-05-31] MEDS: morphine 4 mg/mL SDV 1 mL 2 MG IVP (11:20)
--- NOTE | 2020-05-31 15:22 | P.DS_ITS ---
Discharge Providers Date of Admission: 05/28/20 23:08 Date of Discharge: May 31, 2020 Attending Provider at Admission: Reed Alarcon MD Attending Provider at Discharge: Gabriela Song MD Primary Care Provider: Myranda Quiroz MD Diagnoses at Discharge Discharge Diagnosis (1) Cellulitis and abscess of right leg: Status: Resolved (2) Cellulitis and abscess of left leg: Status: Resolved (3) Transaminitis: Status: Acute (4) Morbid obesity: Status: Acute (5) BILLY (acute kidney injury): Status: Acute (6) Hypokalemia: Status: Acute Reason for Visit Reason for Visit: some sort of rash on legs Hospital Course Discharge Summary: Mag Saucedo is a 49 year old female with no known significant past medical history, however does not follow with physicians, lives by herself, who presents to [facility] on 05/29 for 2-month history of bilateral lower extremity swelling, ulceration, erythema, tenderness, discharge, stasis dermatitis. Venous duplex showed No evidence of DVT in the above-mentioned identifiable veins. No significant venous reflux, either in the deep or superficial vein. Arterial duplex with no arterial occlusion. There is peripheral vascular disease. There is stenosis of the mid left superficial femoral artery. LE CT showed diffuse subcutaneous edema throughout the lower extremity without focal fluid collection or acute bony abnormality likely reflects a cellulitis. Surgical service was consulted, overall there was no acute indication for surgical debridement. She was treated with empiric vancomcyin and zosyn with imrpovement in cellulitis. She is being discharged on a combination of oral Augmentin and oral levofloxacin empirically. Cultures from this wound show gram-negative rods which are pending further identification.[facility] services including care home for wound care and lymphedema wraps has been ordered. She was also noted to have itchy erythemaous pustular rash all over which patient herself attributes to flea bites from her cats since January. However based on appearance I cannot conclusively exclude scabies. She is being discharged with a presumptive dose of ivermectin at 200 mics per kilogram to be taken once now and then possibly repeated one week down the line. PCP follow up has been arranged with Dr. Brooke this week. Wound care referral also provided. Other significant findings included transaminitis for which RUQ USG was performed and showed numerous gallstones without signs of cholecytsitis. Acute hepatitis panel was negative. This would need to be followed up with PCP. Physical Exam Narrative: EXAM NARRATIVE: GEN: Awake, alert and oriented, no acute distress CVS: S1S2 N RS: CTA B/L Abd: Soft, nt/nd , bs+ ELECTRONIC INTEGRATED SYSTEMS MECHANIC: no focal neuro deficits EXt: LE ulceration, chronic over B/L LE Discharge Data Data Completed and Pending: Completed Studies During Hospitalization Category Date Time Status CT lower leg LT w o con* [id number] Stat Cat Scan 05/28/20 23:[address] lower leg RT w o con* [id number] Stat Cat Scan 05/28/20 23:59 [place] [id number] Rout ine Ultrasound 05/29/20 06:54 Completed CV echo complete* [id number] Routine Ultrasound 05/29/20 23:59 Completed CV venous dup ins ufficie LE BI Rout ine Ultrasound 05/30/20 15:56 [place] [id number] Routin e Ultrasound 05/29/20 06:52 Completed US liver [id number] Ro utine Ultrasound 05/31/20 06:34 Completed Pending at discharge Category Date Time Status Blood Culture Sta t Lab 05/28/20 21:27 Results Vancomycin Trough Timed Lab 06/01/20 23:30 Ordered Wound Culture and Gram Stain Stat Lab 05/29/20 01:00 Results Wound Culture and Gram Stain Stat Lab 05/29/20 01:00 Results Labs from last 24 hours 05/31/20 05/31/20 05/31/20 03:20 03:20 03:20 WBC RBC Hgb Hct MCV MCH MCHC RDW Plt Count MPV Neut % (Auto) Lymph % (Auto) [place] % (Auto) Eos % (Auto) Baso % (Auto) Neut # (Auto) Lymph # (Auto) [place] # (Auto) Eos # (Auto) Baso # (Auto) Nucleated RBC % (a uto) Nucleated RBCs # Sodium 141 Potassium 2.5 L* Chloride 108 H Carbon Dioxide 27 Anion Gap 8.5 BUN 10 Creatinine 0.8 GFR Calculation 75.9 L Glucose 128 H Calculated Osmolal ity 293 Calcium 7.3 L Phosphorus 1.5 L Magnesium 2.3 Total Bilirubin 0.4 AST 242 H ALT 326 H Alkaline Phosphata se 74 Total Protein 5.5 L Albumin 2.3 L Globulin 3.2 Vancomycin Trough 20.2 H Hepatitis A IgM Ab Non-reactive Hep Bs Antigen Non-reactive Hep Bs Antibody 3.5 Hep B Core Total A b Non-reactive Hepatitis C Antibo dy Non-reactive 05/31/20 05/30/20 05/30/20 03:20 04:27 04:27 WBC 6.4 8.0 RBC 3.52 L 3.75 L Hgb 9.6 L 10.2 L Hct 30.7 L 33.6 L MCV 87.2 89.6 MCH 27.3 L 27.2 L MCHC 31.3 30.4 RDW 16.1 H 16.4 H Plt Count 283 290 MPV 9.3 9.9 Neut % (Auto) 49.9 70.9 Lymph % (Auto) 35.7 19.7 [place] % (Auto) 9.4 7.0 Eos % (Auto) 3.0 1.0 Baso % (Auto) 0.6 0.6 Neut # (Auto) 3.20 5.66 Lymph # (Auto) 2.3 1.6 [place] # (Auto) 0.6 0.6 Eos # (Auto) 0.2 0.1 Baso # (Auto) 0.0 0.1 Nucleated RBC % (a uto) 0.3 0 Nucleated RBCs # 0.0 0.0 Sodium 140 Potassium 2.7 L* Chloride 106 Carbon Dioxide 21 L Anion Gap 15.7 BUN 16 Creatinine 0.9 GFR Calculation Not Reportable Glucose 111 Calculated Osmolal ity 292 Calcium 7.7 L Phosphorus 2.6 Magnesium 2.2 Total Bilirubin 0.4 AST 669 H ALT 484 H Alkaline Phosphata se 83 Total Protein 5.9 L Albumin 2.6 L Globulin 3.3 Vancomycin Trough Hepatitis A IgM Ab Hep Bs Antigen Hep Bs Antibody Hep B Core Total A b Hepatitis C Antibo dy Vitals: Last Vital Signs Temp 99.3 F 05/31/20 11:49 Pulse 96 05/31/20 11:49 Resp 18 05/31/20 11:49 BP 128/81 05/31/20 11:49 Pulse Ox 96 05/31/20 11:49 Discharge Plan Discharge Patient Disposition: Home Health Service Condition: Stable Prescriptions: New ivermectin 3 mg tablet 35,081 mcg PO DAILY Qty: 11 RF: 0 levofloxacin 750 mg tablet 750 mg PO DAILY PRN (Reason: cellulitis) 14 Days Qty: 14 RF: 0 Augmentin 875-125 mg tablet 1 tab PO BID 14 Days Qty: 28 RF: 0 tramadol 50 mg tablet 50 mg PO Q8H PRN (Reason: pain) 7 Days Qty: 20 RF: 0 No Action No Known Home Medications RF: 0 Discharge Orders: Discharge Order (Routine); Ordered 05/31/20 Ordered By: Gabriela Song Referrals: [facility] ([facility]) [Outside] Ha Brooke MD [Physician] - 06/02/20 9:30 am [facility], [Staff Physician] - 06/06/20 1:00 pm Discharge Diet: Usual diet Discharge Activity: Resume usual activity Patient Instructions: Cellulitis, Amoxicillin/Clavulanate Potassium (By mouth), Tramadol (By mouth), Levofloxacin (By mouth), Ivermectin (By mouth), Acute Kidney Injury (DC) Activity Restrictions/Additional Instructions: dressing chnages with hydrofera blue Discharge Date/Time: 05/31/20 18:53 Discharge Attestations Time Spent in Discharge Care*: greater than 30 min Specific Discharge Activities: Specific discharge activities: educating patient, discussing with special education case manager/social workers/dc planners and documenting/other paperwork Status at Discharge: Cognitive status at discharge: cognitively intact , Behavioral status at discharge: cooperative , Quality Metrics Clinical Quality Measures During this hospital stay, did patient experience: None Coding Level of Care Code Acute Epic Kaleidoscope Analyst for [facility] Diagnoses Cellulitis and abscess of right leg L03.115; L02.415 Cellulitis and abscess of left leg L03.116; L02.416 Transaminitis R74.01 Morbid obesity E66.01 BILLY (acute kidney injury) N17.9 Hypokalemia E87.6
== END 2020-05-31 18:53 | disposition home health service (06) ==
LOC: ER 22:46 → MEDSURG 05-29 07:47
PROVIDERS: Emergency Medicine; Admitting Provider Family Medicine; PCP Family Medicine; Visit Provider Student in an Organized Health Care Education/Training Program
DX: L03.115 Cellulitis of right lower limb (principal); L03.116 Cellulitis of left lower limb; L02.415 Cutaneous abscess of right lower limb; L02.416 Cutaneous abscess of left lower limb; R74.01 Elevation of levels of liver transaminase levels; E66.01 Morbid (severe) obesity due to excess calories; Z68.44 Body mass index [BMI] 60.0-69.9, adult; N17.9 Acute kidney failure, unspecified; E87.6 Hypokalemia
CPT/HCPCS: 12345; 36415; 73700; 76705; 80048; 80053; 80061; 80202; 81001; 83036; 83605; 83735; 83880; 84100; 84145; 84443; 84702; 85025; 85610; 85651; 86140; 86705; 86706; 86709; 86803; 87040; 87070; 87077; 87186; 87205; 87340; 87641; 93306; 93925; 93970; 94664; 96361; 96365; 96366; 96372; 96375; 97140; 97162; 97166; 97530; 97535; 99284; A9281; G0378; J1170; J1200; J1650; J2270; J2405; J2543; J3370; J3480; J7030; J7050

== ENCOUNTER 2020-06-06 13:07 | Outpatient (CLI) | payer BC, SELFPAY | END 2020-06-06 13:08 | disposition home or self-care (01) | LOC: WOUND 13:08 | PROVIDERS: PCP Family Medicine; Visit Provider Thoracic Surgery (Cardiothoracic Vascular Surgery) | DX: L97.822 Non-pressure chronic ulcer of other part of left lower leg with fat layer exposed (principal); L97.812 Non-pressure chronic ulcer of other part of right lower leg with fat layer exposed | CPT/HCPCS: 11042; 11045; G0463 ==

== ENCOUNTER 2020-06-13 13:13 | Outpatient (CLI) | payer BC, SELFPAY | END 2020-06-13 13:14 | disposition home or self-care (01) | LOC: WOUND 13:14 | PROVIDERS: PCP Family Medicine; Visit Provider Thoracic Surgery (Cardiothoracic Vascular Surgery) | DX: L97.822 Non-pressure chronic ulcer of other part of left lower leg with fat layer exposed (principal); L97.812 Non-pressure chronic ulcer of other part of right lower leg with fat layer exposed | CPT/HCPCS: 11042; 11045 ==

== ENCOUNTER 2020-06-20 13:09 | Outpatient (CLI) | payer BC, SELFPAY | END 2020-06-20 13:10 | disposition home or self-care (01) | LOC: WOUND 13:10 | PROVIDERS: PCP Family Medicine; Visit Provider Thoracic Surgery (Cardiothoracic Vascular Surgery) | DX: I89.0 Lymphedema, not elsewhere classified (principal); L97.822 Non-pressure chronic ulcer of other part of left lower leg with fat layer exposed; L97.812 Non-pressure chronic ulcer of other part of right lower leg with fat layer exposed | CPT/HCPCS: 11042; 11045 ==

== ENCOUNTER 2020-06-27 13:07 | Outpatient (CLI) | payer BC, SELFPAY | END 2020-06-27 13:08 | disposition home or self-care (01) | LOC: WOUND 13:08 | PROVIDERS: PCP Family Medicine; Visit Provider Thoracic Surgery (Cardiothoracic Vascular Surgery) | DX: I89.0 Lymphedema, not elsewhere classified (principal); L97.822 Non-pressure chronic ulcer of other part of left lower leg with fat layer exposed; L97.812 Non-pressure chronic ulcer of other part of right lower leg with fat layer exposed | CPT/HCPCS: 11042; 11045; 97597 ==

== ENCOUNTER 2020-07-04 13:06 | Outpatient (CLI) | payer BC, SELFPAY | END 2020-07-04 13:07 | disposition home or self-care (01) | LOC: WOUND 13:06 | PROVIDERS: PCP Family Medicine; Visit Provider Nurse Practitioner Family | DX: I89.0 Lymphedema, not elsewhere classified (principal); L97.822 Non-pressure chronic ulcer of other part of left lower leg with fat layer exposed; L97.812 Non-pressure chronic ulcer of other part of right lower leg with fat layer exposed | CPT/HCPCS: 11042 ==

== ENCOUNTER → 2020-07-05 14:25 | Outpatient (BNVA) | payer BC, SELFPAY | PROVIDERS: PCP Family Medicine; Visit Provider Family Medicine Adult Medicine | DX: E87.6 Hypokalemia (principal); N17.9 Acute kidney failure, unspecified; R74.01 Elevation of levels of liver transaminase levels; E66.01 Morbid (severe) obesity due to excess calories; D64.9 Anemia, unspecified; R73.03 Prediabetes; L03.115 Cellulitis of right lower limb; L03.116 Cellulitis of left lower limb | CPT/HCPCS: 80053; 83036; 84443; 85025 ==

== ENCOUNTER 2020-07-11 12:53 | Outpatient (CLI) | payer BC, SELFPAY | END 2020-07-11 12:54 | disposition home or self-care (01) | LOC: WOUND 12:53 | PROVIDERS: PCP Family Medicine; Visit Provider Nurse Practitioner Family | DX: I89.0 Lymphedema, not elsewhere classified (principal); L97.822 Non-pressure chronic ulcer of other part of left lower leg with fat layer exposed; L97.812 Non-pressure chronic ulcer of other part of right lower leg with fat layer exposed | CPT/HCPCS: 11042 ==

== ENCOUNTER 2020-07-21 14:26 | Outpatient (CLI) | payer BC, SELFPAY | END 2020-07-21 14:27 | disposition home or self-care (01) | LOC: WOUND 14:26 | PROVIDERS: PCP Family Medicine; Visit Provider Thoracic Surgery (Cardiothoracic Vascular Surgery) | DX: I89.0 Lymphedema, not elsewhere classified (principal); L97.822 Non-pressure chronic ulcer of other part of left lower leg with fat layer exposed; L97.812 Non-pressure chronic ulcer of other part of right lower leg with fat layer exposed | CPT/HCPCS: 99212 ==

== ENCOUNTER 2020-07-28 14:56 | Outpatient (CLI) | payer BC, SELFPAY | END 2020-07-28 14:57 | disposition home or self-care (01) | LOC: WOUND 14:57 | PROVIDERS: PCP Family Medicine; Visit Provider Nurse Practitioner Family | DX: Z09 Encounter for follow-up examination after completed treatment for conditions other than malignant neoplasm (principal) | CPT/HCPCS: 99212; A6545 ==